=== PATIENT | male | born 1955 | race Caucasian/White ===

== ENCOUNTER 2017-06-27 23:56 | Inpatient (IN) | payer MEDICAID ==
[~2017-06-27] VITALS: Ht 170.2 cm; Wt 86.9 kg
--- NOTE | ~2017-06-27 | DS ---
PATIENT'S NAME: ARMIN REYES [facility] AGE: 61 Y [address] ROOM: [address] [address] LOCATION: GPCU ADMIT DATE: 06/28/2017 Discharge Summary DISCHARGE DATE: 06/30/2017 FAMILY PHYSICIAN: Juan Jose Yuen MD ATTENDING PHYSICIAN: Lm Cool ADMITTING DIAGNOSIS: Acute blood loss anemia. DISCHARGE DIAGNOSIS: Acute blood loss anemia. SECONDARY DIAGNOSES: 1. History of deep vein thrombosis. 2. Syncope. 3. Bleeding of right lower extremity through exploration site. 4. Hypertension. 5. History of alcohol abuse. 6. Legally blind. PROCEDURES: Echocardiogram and stress test. CONSULTATION: Cardiology. 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 The patient called his sister and was taken to [place] for evaluation. In the emergency department at [place], the patient was drowsy. Right foot was bleeding; however, it stopped by itself shortly after he arrived in the emergency department. His blood pressure was found to be 88/50 and heart rates in the 90s. Hemoglobin was 13.2 on arrival. The patient had a CT scan of the head at the outside hospital, which was normal, and INR was 1.5. The patient was given a bolus of IV fluid with improvement of blood pressure. There was a question whether the patient had a syncopal event in the emergency department and was transferred here for further workup. HOSPITAL COURSE: The patient was transferred to our facility. The patient did not have any site of bleeding. His hemoglobin has been stable during stay. The patient had an echocardiogram shows EF of 75%. The patient was seen by Cardiology and had stress test done, which shows inferolateral small fixed defect, most likely secondary to attenuation, no reversible ischemic changes. The patient was restarted back on Xarelto without any signs of bleeding. The patient had lower extremity Doppler done shows chronic DVT. The patient's hemoglobin has been stable during stay. Sites of bleeding were right foot bleeding, secondary to small excoriation. During his stay, the patient was also placed on CIWA protocol for possible alcohol withdrawal. The PATIENT'S NAME: ARMIN REYES [facility] AGE: 61 Y [address] ROOM: G6[address] [place], [place] [address] LOCATION: GPCU ADMIT DATE: 06/28/2017 Discharge Summary DISCHARGE DATE: 06/30/2017 FAMILY PHYSICIAN: Juan Jose Yuen MD ATTENDING PHYSICIAN: Lm Cool patient did not go into alcohol withdrawal. The patient was offered to have a Holter monitor on discharge; however, declined to get Holter monitor from the hospital and reports that he wants to do it as outpatient. Also, discussed about the use of KARELY hose for his chronic venous stasis. The patient reports that he has KARELY hose at home and will wear. The patient lives by himself and legally blind. Discussed about Home Health Care. The patient refused Home Health Care and he said he is able to take care from himself. CONDITION: Stable. DISPOSITION: Home. DISCHARGE MEDICATIONS: Please see MAR. DISCHARGE INSTRUCTIONS: To go to the emergency department if the patient have presyncopal event or bleeding. Also, to go to the emergency department if he has chest pain, shortness of breath, fever, and chills. FOLLOW UP: Follow up with his primary care physician in 1 week. PHYSICAL EXAMINATION: VITAL SIGNS: Stable. CHEST: Clear to auscultation bilaterally. HEART: Regular rate and rhythm. No murmurs, rubs, or gallops. ABDOMEN: Soft, nontender, nondistended. EXTREMITIES: Bilateral venous stasis change. HATCHERY MAN: The patient is alert and oriented x3. Greater than 30 minutes was spent on discharge planning. MD MO HSIEH/tej /[id number] d: 07/01/17 0134 t: 07/08/17 1059, DISCHARGE SUMMARY
--- NOTE | ~2017-06-27 | ENPV ---
Vascular Lower Extremities DVT Study Procedure Demographics Patient Name ARMIN REYES Date of Study 06/28/2017 Patient Number [id number] Gender Male Date of 1955 Age 61 Visit Number [id number] Height 67 Weight 189.82 Number Referring Silvina Murillo MD Interpreting aMti Galeana MD Physician Physician Physician Ordering Silvina Murillo [employer] Ranger Physician Saw Maker Sharlene Gutierrez RDCS, RVT, RDMS, PATIENT PORTAL CONCIERGE Conclusions Summary Chronic to subacute dvt is noted from the right popliteal through the calf veins. The left leg is negative for DVT. Procedure Type of Study: Veins:Lower Extremities DVT Study, Venous Duplex Lower Extremity Bilateral. Additional Indications:History of DVT / PE s/p 2015. Edema. Appropriate Use Criteria:9 Patient Status:Routine. Study Location:Inpatient Portable. Technical Quality:Adequate visualization. - Preliminary reported to:Dr. Cool at 09:00 AM.. Risk Factors - The patient's risk factor(s) include: treated arterial hypertension. Velocities are measured in cm/s ; Diameters are measured in cm Right Lower Extremities DVT Study Measurements Right 2D and Doppler Measurements + + + + +------+------+ + !Location !Visualized!Compressibility!Thrombosis!Signal!Reflux!Reflux ! ! ! ! ! ! ! !(sec) ! + + + + +------+------+ + !GSV Thigh !Yes !Yes !None !Phasic! ! ! + + + + +------+------+ + !Common !Yes !Yes !None !Phasic! ! ! !Femoral ! ! ! ! ! ! ! + + + + +------+------+ + !Prox !Yes !Yes !None !Phasic! ! ! !Femoral ! ! ! ! ! ! ! + + + + +------+------+ + !Mid Femoral!Yes !Yes !None !Phasic! ! ! + + + + +------+------+ + !Dist !Yes !Yes !None !Phasic! ! ! !Femoral ! ! ! ! ! ! ! + + + + +------+------+ + !Popliteal !Yes !Partial !Chronic !Absent! ! ! + + + + +------+------+ + !Gastroc !Yes !Yes !None ! ! ! ! + + + + +------+------+ + !PTV !Yes !Partial !Chronic ! ! ! ! + + + + +------+------+ + !Peroneal !Yes !Partial !Chronic ! ! ! ! + + + + +------+------+ + Left Lower Extremities DVT Study Measurements Left 2D and Doppler Measurements + + + + +------+------+ + !Location !Visualized!Compressibility!Thrombosis!Signal!Reflux!Reflux ! ! ! ! ! ! ! !(sec) ! + + + + +------+------+ + !GSV Thigh !Yes !Yes !None !Phasic!No ! ! + + + + +------+------+ + !Common !Yes !Yes !None !Phasic!No ! ! !Femoral ! ! ! ! ! ! ! + + + + +------+------+ + !Prox !Yes !Yes !None !Phasic!No ! ! !Femoral ! ! ! ! ! ! ! + + + + +------+------+ + !Mid Femoral!Yes !Yes !None !Phasic!No ! ! + + + + +------+------+ + !Dist !Yes !Yes !None !Phasic!No ! ! !Femoral ! ! ! ! ! ! ! + + + + +------+------+ + !Popliteal !Yes !Yes !None !Phasic!No ! ! + + + + +------+------+ + !Gastroc !Yes !Yes ! ! ! ! ! + + + + +------+------+ + !PTV !Yes !Yes ! ! ! ! ! + + + + +------+------+ + !Peroneal !Yes !Yes ! ! ! ! ! + + + + +------+------+ + Signature dtt: JESUS RYDER dtlynn: 06/28/17 0753 Physician Esteban Collier
--- NOTE | ~2017-06-27 | ESTC ---
Cardiac Perfusion Imaging Demographics Patient Name ERIC FUNEZ Gender Male Patient Number [id number] Race Visit Number [id number] Ethnicity Corporate ID Room Number G6333 Accession Number [id number] Height 67 inches Date of 1955 Weight 189.8 pounds Interpreting Charo Bruno Date of study 06/29/2017 Physician Supervising /BRUNAP Charo Bruno NM Technologist Marianela Wong MD Ordering Physician Stress Catracho Azul photogrammetric technician RVT Stress ECG Reading Charo Bruno Nurse Damari Lorenzo Physician RN The procedure was explained in detail to the patient. Risks, complications and alternative treatments were reviewed. Written consent was obtained. Medications Reviewed with Patient prior to Procedure. Procedure Procedure Type: Nuclear Stress Test:Pharmacological, Cardiolite Stress Test Procedure Start time: 06/29/2017 10:45 Indications: Syncope. Risk Factors The patient risk factors include:treated hypertension. Conclusions Summary Asymptomatic with Lexiscan with no EKG changes of ischemia. Small to medium inferolateral fixed defect of moderate degree most consistent with soft tissue attenuation. LVEF: 82%. Normal WM. Stress Protocols Resting ECG RSR. Pre-stress physical exam: Un changed. Predicted HR: 159 bpm ECG Findings No ECG changes suggestive of ischemia. Arrhythmias No rhythm abnormality. Symptoms No symptoms with Lexiscan infusion. Stress Interpretation Lexiscan cardiolite study with normal hemodynamic response. No symptoms. No ischemia. No arrythmia. Imaging Results Applied corrections - Motion correction applied High risk findings Summed scores - Summed stress score: 1 - Summed rest score: 2 - Summed difference score: -1 Stress ejection Ejection fraction:82 % EDV :84 ml ESV :15 ml Stroke volume :69 ml LV mass :117 gr LV size:Normal Normal LV function Imaging Protocols Rest Stress Isotope:Tc99m Sestamibi IV Isotope: Tc99m Sestamibi IV Isotope dose:13.7 mCi Isotope dose:41.8 mCi Date:06/29/2017 09:24 Date:06/29/2017 11:09 Technique: SPECT Technique: Gated Supine SPECT Supine IV remains in place after procedure. Procedure Medications - Regadenoson (Lexiscan) 0.4 mg IV over 10-15 sec. I.V. 0.4 mg. Medical History Admission Data Admission date: 06/28/2017 Admission Time: 01:55 Hospital Status: Inpatient. Signatures dtt: Kiana Mancilla dtd: 06/29/17 1045 Physician Self Edit
--- NOTE | ~2017-06-27 | HP ---
PATIENT'S NAME: ARMIN REYES [facility] AGE: 61 Y [address] ROOM: [address] [place], [place] [address] LOCATION: GPCU ADMIT DATE: 06/28/2017 History & Physical DISCHARGE DATE: FAMILY PHYSICIAN: Juan Jose Yuen MD ATTENDING PHYSICIAN: JENNIFER TELLO DATE OF SERVICE: CHIEF COMPLAINT: Syncope and acute blood loss from the right medial ankle area. HISTORY OF PRESENT ILLNESS: This is a 61-year-old male who says that he chronically takes Xarelto. He has a history of pulmonary embolism that happened in year 2014, around that time, he had right hip surgery. He says that last night around 7 p.m. and when he woke up from sleep, he noticed that the socks of his right foot was wet, therefore he grabbed a small piece of towel to dry the right foot and he noticed that it was actually blood. He says that he had to use 2 small sized towels to clean all the blood on his right foot. His socks were also soaked with blood. He says the blood was coming out from the medial side of the right foot below the medial malleolus. He denies any trauma or any injury or any fall. He has no idea how he got a bleeding from the right foot. He lost so much blood according to him that he had no recollection of what happened afterwards, but he did remember that he called his sister over the phone. When the sister came by, the patient was brought to the outside facility emergency room in [place] for evaluation. In addition, the patient is a chronic alcohol drinker. He drinks about 6 pack of beer per day every day for long time, but he denies any alcohol withdrawal in the past. When he arrived to the emergency room in [place], the patient was very drowsy, almost unresponsive. The right foot was still bleeding in that area, however, it stopped by itself shortly after he arrived over there in the emergency room. His blood pressure was found to be 88/50, heart rate of low 90s on arrival over there. EKG was normal over there. Troponin was normal over there. Hemoglobin was 13.2 and platelet was 256 over there on arrival. The patient had a CT scan of the head which also came back unremarkable. Liver function was normal over there. INR is 1.5. The patient was given 1 L of normal saline bolus. Blood pressure improved to 110 systolic, heart rate went down to the low 80s. Chest x-ray was unremarkable. In the emergency room over there, the patient also vomited once and they described unresponsiveness as a syncope and it only happened once when he arrived in the emergency room. Due to the concern of syncope and acute blood loss in the setting of using Xarelto and due to his prior history of pulmonary embolism, the patient was referred here for further care. PATIENT'S NAME: ARMIN REYES [facility] AGE: 61 Y [address] ROOM: [address] [address] [facility] ADMIT DATE: 06/28/2017 History & Physical DISCHARGE DATE: FAMILY PHYSICIAN: Juan Jose Yuen MD ATTENDING PHYSICIAN: JENNIFER TELLO REVIEW OF SYSTEMS: As mentioned in the history of present illness. All other systems were reviewed and were negative except those mentioned in history of present illness. PAST MEDICAL HISTORY: 1. Pulmonary embolism diagnosed in year 2014. The patient states that it happened right before he had right hip surgery. He was on Coumadin and was later switched to Xarelto. Given that Coumadin, he would require INR monitoring and he did not want that. The patient says that he never bled while he was on Coumadin or on Xarelto. The first time he bled was the last night with Xarelto. 2. Hypertension. 3. Gout. ALLERGIES: NONE ACCORDING TO THE PATIENT. HOME MEDICATIONS: 1. The patient does take Xarelto. 2. Allopurinol. 3. One blood pressure medication, but he could not remember the name. 4. Medication list has to be reconciled by the medical staff with the patient's pharmacy before they can be addressed. SOCIAL HISTORY: The patient is a chronic alcohol long-time drinker with 6-pack per day for many years. He denies any alcohol withdrawal seizure in the past. The patient denies any cigarette or any illegal drug use. PAST SURGICAL HISTORY: 1. Status post right hip surgery. 2. Status post left wrist surgery. FAMILY HISTORY: Father from old age from Alzheimer disease. Mother from old age, but he could not remember the cause. PHYSICAL EXAMINATION: VITAL SIGNS: At the time of my dictation; temperature 98, heart rate 86, respirations 14, blood pressure 138/87, saturation 97% on room air. GENERAL APPEARANCE: Alert and oriented x3. Currently, in no acute distress. HEENT: Pupils equally round and reactive to light. Extraocular muscles intact. Anicteric sclerae. Nasal turbinates are normal bilaterally. Dry oral mucosa. PATIENT'S NAME: ARMIN REYES [facility] AGE: 61 Y [address] ROOM: [facility] [place] [place] [address] [facility] ADMIT DATE: 06/28/2017 History & Physical DISCHARGE DATE: FAMILY PHYSICIAN: Juan Jose Yuen MD ATTENDING PHYSICIAN: JENNIFER TELLO NECK: No JVD. CARDIOVASCULAR: Regular rate and rhythm. Normal S1, S2. No murmur. No rubs. No gallops. RESPIRATORY: Clear to auscultation. No rales. No rhonchi. No wheezing. No crackles. ABDOMEN: Soft, nontender, nondistended, bowel sounds present, no mass. No hepatosplenomegaly. EXTREMITIES: He does have edema on right lower extremity and left lower extremity is normal. He does have venous stasis dermatitis changes in bilateral lower extremities. On the right lower extremity, I do appreciate some visible varicose veins below the left medial malleolus, but they are not actively bleeding. He does have some dry blood around his toenails of the right foot. No ulcer. No cyanosis. Dorsalis pedis pulse and posterior tibialis pulse +1 bilaterally palpable. NEUROLOGICAL: Grossly nonfocal. SKIN: He does have flaking, erythema and patches in the face and neck. He also has scaling in his scalp finding consistent with seborrheic dermatitis. LABORATORY DATA: CPK 25, troponin less than 0.04. ProBNP 254. White blood cell 21, hemoglobin 11.6, hematocrit 33.4, platelet 239. Glucose 115, BUN 6, creatinine 0.5. Sodium 133, potassium 4.1, chloride 97, CO2 24, calcium 7.5, total protein 6.0, albumin 3.2, AST 18, ALT 15, alkaline phosphatase 54, total bilirubin 0.8, direct bilirubin 0.3, phosphorus 3.1, magnesium 1.3, anion gap 16.1, A1c pending, INR 1.31, PTT 38, GFR more than 90, CK-MB 1.3. IMAGING STUDIES: EKG on admission shows sinus rhythm, heart rate of 83 beats per minutes without any acute ischemic changes. CT of the head without contrast on admission showed nonspecific white matter disease. Additional hypodensities in the right thalamus and the left amanda likely old. However if there is concern for an acute stroke, we will recommend MRI. Chest x-ray on admission from the outside facility showed normal chest. ASSESSMENT AND PLAN: 1. Regarding his syncope. Differential could be from acute blood loss with hypotension from hypovolemia, vasovagal, orthostatic hypotension, arrhythmia. For this reason, I am going to be checking orthostatic vital sign to rule out dehydration. In addition, I will be getting a blood type and screen and also check hemoglobin and hematocrit in 4 hours again and then we will transfuse if the hemoglobin is less than 7. We will PATIENT'S NAME: ARMIN REYES [facility] AGE: 61 Y [address] ROOM: [place] [address] [facility] ADMIT DATE: 06/28/2017 History & Physical DISCHARGE DATE: FAMILY PHYSICIAN: Juan Jose Yuen MD ATTENDING PHYSICIAN: JENNIFER TELLO also be getting a transthoracic echo for evaluation for syncope. I will also consult Cardiology for syncope evaluation as well as for the possibility of IVC filter implantation to prevent future acute blood loss from taking Xarelto or Coumadin given that the patient does have a history of pulmonary embolism in the past and that is why he is on Xarelto. Further plan will depend on clinical course. 2. Regarding his acute blood loss in the right lower extremity on Xarelto. The patient does not remember how he bled, but he denies any trauma. Probably this is from Xarelto induced bleeding from the varicose veins or the patient actually had a trauma and he could not remember. As mentioned before, we will get a blood type and screen and check hemoglobin and hematocrit in 4 hours and then we will transfuse if the hemoglobin is less than 7. In addition, we will continue IV fluids for hydration. 3. Regarding his seborrheic dermatitis. We will cover him with topical triamcinolone topical cream twice a day for 7 days and he can use it longer if necessary. When the patient gets discharge from his scalp, the patient will require antifungal shampoo, it could be Ketoconazole or selenium sulfide. 4. Regarding his high-risk for alcohol withdrawal. His last drink was yesterday. I will be putting on the CIWA protocol and he can use p.o. Ativan or p.o. Valium per CIWA protocol. 5. He is a full code. 6. DVT prophylaxis. For now, we will avoid Xarelto. Encourage ambulation. Time spent in care on the day of admission 50 minutes where 10 minutes was spent on chart review, remainder of time was spent on interview and physical examination and also on counseling. The counseling includes extensive work through about the plan of care with the patient in detail and I answered all his questions and concerns to his satisfaction. I also went over the plan of care with the nurse. Further plan will depend on clinical course. MD TAURUS NAPIER/tej /[id number] D: [id number] T: [id number] HISTORY & PHYSICAL
--- NOTE | ~2017-06-27 | ECHO ---
Transthoracic Echocardiography Report (TTE) Demographics Patient Name ARMIN REYES Date of Study 06/28/2017 Patient Number [id number] Visit Number [id number] Date of 1955 Room Number G6333 Gender Male Number Age 61 year(s) Referring Silvina Murillo MD Clinical Laboratory Director Sharlene Gutierrez RDCS, Physician RVT, RDMS, CHILD & ADOLESCENT PSYCHIATRIST Physician Interpreting Dimas Lopez MD Radiator Fitter Physician Supervising Ordering Silvina Murillo MD, MD/MLP Physician Nurse Stress Corner Former Conclusions Contractility Score Summary Normal Left Ventricular contractility was noted. Summary Hyperdynamic left ventricular systolic function with an ejection fraction of 75% Mild concentric left ventricular hypertrophy. Diastolic assessment reveals Grade I diastolic dysfunction. There is a resting mid cavity gradient of 15 mmHg and peak Valsalva gradient of 61 mmHg. Left atrium is mildly dilated. Mild mitral annular calcification. Focal calcification of the anterior leaflet of the mitral valve. No mitral regurgitation by color Doppler. Procedure Type of Study TTE procedure:2D Echocardiogram, M-Mode, Doppler , Color Doppler. Procedure Date Date: 06/28/2017 Start: 08:17 AM Study Location: Inpatient Portable Technical Quality: Fair due to lung interference. Additional Indications:Syncope Appropriate Use Criteria: 7 Patient Status: Routine HR: 83 bpm BP: 101/58 mmHg M-Mode/2D Measurements LV Diastolic Dimension: 4.15 cm LV Systolic Dimension: 2.26 cm LV Septum Diastolic: 1.17 cm LV PW Diastolic: 1.11 cm AO Root Dimension: 3.1 cm Cardiac Output: 5.87 l/min AV Cusp Separation: 2.3 cm RV Diastolic Dimension: 3.96 cm LA volume: 59 ml LVOT: 1.8 cm RV Base: 3 cm LVOT VTI: 27.8 cm RV Mid: 2.5 cm LV Stroke volume: 70.71 ml Doppler Measurements AV Peak Velocity: 1.61 m/s MV Peak E-Wave: 0.56 m/s AV Peak Gradient: 10.37 mmHg MV Peak A-Wave: 1.34 m/s AV Mean Gradient: 5 mmHg MV E/A Ratio: 0.42 LVOT Peak Velocity: 1.37 m/s MV P1/2t: 80 msec Estimated RAP:3 mmHg PV Peak Velocity: 1.13 m/s E' Septal Velocity: 0.07 m/s PV Peak Gradient: 5.11 mmHg E' Lateral Velocity: 0.07 m/s A' Septal Velocity: 0.11 m/s A' Lateral Velocity: 0.09 m/s Findings Left Ventricle Mild concentric left ventricular hypertrophy. Diastolic assessment reveals Grade I diastolic dysfunction. There is a resting mid cavity gradient of 15 mmHg and peak Valsalva gradient of 61 mmHg. Right Ventricle Normal right ventricle structure and function. Left Atrium Left atrium is mildly dilated. Right Atrium Normal right atrial size. IVC imaging is consistent with normal RA pressures. Mitral Valve Mild mitral annular calcification. Focal calcification of the anterior leaflet of the mitral valve. No mitral regurgitation by color Doppler. Aortic Valve The aortic valve is moderately sclerotic. Tricuspid Valve Normal tricuspid valve structure and function. Insufficient tricuspid regurgitant waveform to assess pulmonary pressures. Pulmonic Valve Normal pulmonic valve structure and function. Pericardial Effusion No evidence of pericardial effusion. Miscellaneous Visualized portions of the aortic root and ascending aorta appear normal in size. Pleural Effusion No evidence of pleural effusion. Signature dtt: STEVE DE JESUS dtd: 06/28/17 0817 Physician Self Edit
--- NOTE | ~2017-06-27 | CON ---
PATIENT'S NAME: ARMIN REYES [facility] AGE: 61 Y [address] ROOM: [id number] [place], [place] [address] LOCATION: GPCU ADMIT DATE: 06/28/2017 Consultation DISCHARGE DATE: FAMILY PHYSICIAN: Juan Jose Yuen MD ATTENDING PHYSICIAN: JENNIFER TELLO DATE OF CONSULTATION: 06/28/2017 REFERRING PHYSICIAN: Kiana Mancilla MD HISTORY OF PRESENT ILLNESS: Mr. Reyes is a 61-year-old male patient, who had a bleeding leg artery that caused his blood pressure to drop down to 80s. During that time, he had a spell where he does not recall anything, and it appears he may have been presyncopal at that time. I am asked to see him in consultation because of that, and his echo is abnormal. So, I am planning on checking his EKGs and troponins, and if negative, we will do a Lexiscan Cardiolite study. 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 He has been disabled since then. He lives alone in [place], [place]. Typically, he is able to take care of himself and go out and walk up to about 8 to 9 blocks. His vision is quite poor at this time, but he manages. Typically, he does not have any chest pain. He is not on any regular structured exercise program. He is in functional class 2 with no paroxysmal nocturnal dyspnea or orthopnea. There is no history of lightheadedness, dizziness, syncope, presyncope, palpitations, etc. He has had ankle swelling for a few years since he had his hip surgery on the right side. The patient has a history of hypertension and gout. He denies diabetes, elevated cholesterol, tobacco abuse, or family history of premature coronary artery disease. He denies SD or angina or nitroglycerin use. There is no history of rheumatic fever, heart murmur, heart failure, dilated or enlarged heart, or any diagnosed cardiac arrhythmias. The patient has a history of pulmonary embolism in close proximity to his hip surgery. In fact, it was prior to his hip surgery, and he has since then been on Xarelto. MEDICATIONS: 1. Xarelto 20 mg a day. 2. Multivitamin once a day. 3. Allopurinol 300 mg a day. PATIENT'S NAME: ERIC [facility] AGE: 61 Y [address] ROOM: [place] [address] LOCATION: GPCU ADMIT DATE: 06/28/2017 Consultation DISCHARGE DATE: FAMILY PHYSICIAN: Juan Jose Yuen MD ATTENDING PHYSICIAN: JENNIFER TELLO 4. Docusate sodium. 5. Hydrocodone/acetaminophen one tablet every 6 hours. 6. Metoprolol 100 mg a day. ALLERGIES: NO KNOWN DRUG ALLERGIES. PAST MEDICAL AND SURGICAL HISTORY: 1. Left hip surgery. 2. Left wrist surgery. 3. Legally blind. 4. DJD of left knee. SOCIAL HISTORY: He lives alone. He drinks a six pack of beer a day. He denies recreational drug abuse. His appetite and weight are stable. Sleep is fair. FAMILY HISTORY: No premature coronary artery disease. REVIEW OF SYSTEMS: Twelve-point review of systems revealed allergies and some lack of energy. PHYSICAL EXAMINATION: GENERAL: The patient is awake and alert, and he is able to give a fairly detailed history. VITAL SIGNS: Blood pressure is 140/80, heart rate is in the 60s and 70s and regular, respirations are 18, and afebrile. HEENT: Normal. NECK: Supple. No JVD, thyromegaly, lymphadenopathy, or carotid bruit. HEART: PMI is not well located. First and second heart sounds are regular. There are no added sounds or murmurs. CHEST: Clear to auscultation. ABDOMEN: Soft and nontender. Bowel sounds are normally present. EXTREMITIES: Revealed 1+ edema. NEUROLOGICAL: Central nervous system was intact. ASSESSMENT: A 61-year-old male patient with presyncope. He may have had a syncopal spell. This was in relation to losing blood from a superficial bleed from the right leg. However, he is legally blind, and so he could not take care of it. It appears as if his echo is abnormal. RECOMMENDATIONS: We will rule him out for SD, and then get a stress test in the morning. [facility]GE[facility] 61 Y [address] ROOM: [place] [address] LOCATION: GPCU ADMIT DATE: 06/28/2017 Consultation DISCHARGE DATE: FAMILY PHYSICIAN: Juan Jose Yuen MD ATTENDING PHYSICIAN: JENNIFER TELLO Again, I appreciate this opportunity to participate in the care of Mr. Reyes. MD JESSICA ELAINE/tej /[id number] d: 06/28/178 t: 07/02/17 1226, CONSULTATION REPORT
[2017-06-28] MEDS ORDERED: XARELTO20 MG PO (03:16)
[2017-06-28] MEDS ORDERED: THERAGRAN-M1 TAB PO (03:16)
[2017-06-28 04:04] LABS: HEMATOCRIT 33.4 % (37.0-53.0); HEMOGLOBIN 11.6 g/dL (11.0-16.0); MCH 31.9 pg (27.0-34.0); MCHC 34.7 gm/dL (32.0-36.5); MCV 91.8 fl (83.0-98.0); PLATELET COUNT 239 K/uL (150-450); RBC 3.64 M/uL (3.50-5.50); RDW-CV 13.1 % (11.9-14.6)
[2017-06-28 04:08] LABS: INR - (THERAPEUTIC) 1.31 (0.92-1.07); PROTIME 13.8 SECONDS (9.8-11.4); PTT 38 SECONDS (25-32)
[2017-06-28 04:16] LABS: ALBUMIN 3.2 gm/dL (3.5-5.0); ALK PHOS 54 IU/L (33-138); ALT 15 IU/L (12-78); ANION GAP 16.1 (10.0-19.0); AST 18 IU/L (10-40); BLOOD UREA NITROGEN 6 mg/dL (6-24); CALCIUM 7.5 mg/dL (8.5-10.5); CHLORIDE 97 mMol/L (96-110); CO2 24 mMol/L (22-32); CPK 25 IU/L (35-332); CREATININE 0.5 mg/dL (0.6-1.3); MAGNESIUM 1.3 mg/dL (1.8-2.6); PHOSPHORUS 3.1 mg/dL (2.5-4.9); POTASSIUM 4.1 mMol/L (3.7-5.1); SODIUM 133 mMol/L (135-145); TOTAL BILIRUBIN 0.8 mg/dL (0.0-1.5)
[2017-06-28 04:35] LABS: ABSOLUTE NEUTROPHIL CT (ANC) 20.2 K/uL (1.4-9.0); BANDED NEUTROPHIL # 3.4 K/uL (0.0-0.1); BANDED NEUTROPHILS % 16 %; LYMPHOCYTE # 0.2 K/uL (0.8-4.0); LYMPHOCYTE % 1 %; MONOCYTE # 0.6 K/uL (0.0-1.0); SEGMENTED NEUTROPHIL # 16.8 K/uL (1.4-9.0); SEGMENTED NEUTROPHIL % 80 %
[2017-06-28 06:10] LABS: HEMATOCRIT 33.3 % (37.0-53.0); HEMOGLOBIN 11.5 g/dL (11.0-16.0)
--- NOTE | 2017-06-28 07:09 | NUR ---
Significant Event: PATIENT A/O X3. VSS SBP 110-120 HR 80. O2 SATS 98% ON RA. PATIENT HAD ACUTE BLOOD LOSS AT HOME, TAKEN TO HOSPITAL IN [place] AND HAD A SYNCOPAL EPISODE THERE. PATIENT STATES HE DRINKS A 6 PACK OF BEER EVERYDAY. PATIENT HAS VENOUS STAINING LOWER LEGS BILAT FROM KNEES TO TOES. PAIENT IS AFEBRILE AND DENEIS PAIN. Follow up: FOLLOW CARE PLAN.
[2017-06-28 08:41] LABS: HEMATOCRIT 32.8 % (37.0-53.0); HEMOGLOBIN 11.2 g/dL (11.0-16.0); MCH 31.5 pg (27.0-34.0); MCHC 34.1 gm/dL (32.0-36.5); MCV 92.4 fl (83.0-98.0); MPV 9.8 fl (9.4-12.4); RBC 3.55 M/uL (3.50-5.50); RDW-CV 13.2 % (11.9-14.6)
[2017-06-28 08:43] LABS: WBC 20.9 K/uL (4.0-11.0)
[2017-06-28 09:02] LABS: ANION GAP 14.3 (10.0-19.0); BLOOD UREA NITROGEN 8 mg/dL (6-24); CALCIUM 7.8 mg/dL (8.5-10.5); CHLORIDE 97 mMol/L (96-110); CO2 25 mMol/L (22-32); CREATININE 0.6 mg/dL (0.6-1.3); POTASSIUM 4.3 mMol/L (3.7-5.1); SODIUM 132 mMol/L (135-145)
[2017-06-28] MEDS ORDERED: COLACE100 MG PO (11:13)
[2017-06-28] MEDS ORDERED: ZYLOPRIM300 MG PO (11:13)
[2017-06-28] MEDS ORDERED: NORCO 5-325 TA1 EACH PO (11:14)
[2017-06-28] MEDS ORDERED: TOPROL XL100 MG PO (11:14)
--- NOTE | 2017-06-28 12:15 | NUR ---
Introduced self and role of care management to patient. He lives by himself in [facility]. He states that he is able to do all his own ADL's. He does have a sister the lives a few blocks from him that assists if needed. He plans on returning home on discharge. He states his sister will be coming to pick him up on discharge. He denies any needs at this time. Will continue to follow.
--- NOTE | 2017-06-28 16:38 | NUR ---
Significant Event: Patient alert and oriented. Denies numbness and tingling. Has had no bleeding, restarted on Eliquis. Venous staining to lower extremites. IV to L) AC, running NS at 75 mls/hr. Used urinal x1, need UA. CWA score has been 4 and under. Denies nausea/vomiting. States throat is sore from vomiting last evening. Is legally blind but is able to see close shapes. VSS on room air, has had temps in the 99's. WBC is elevated, CBC in AM. Denies pain. Cooperative with cares. Follow up:
[2017-06-29 02:41] LABS: BASOPHIL % 0.3 %; EOSINOPHIL # 0.1 K/uL (0.0-0.5); EOSINOPHIL % 0.5 %; HEMATOCRIT 26.9 % (37.0-53.0); HEMOGLOBIN 9.4 g/dL (11.0-16.0); IMMATURE GRANULOCYTE # 0.1 K/uL (0.0-0.3); IMMATURE GRANULOCYTE % 0.8 %; LYMPHOCYTE # 0.9 K/uL (0.8-4.0); LYMPHOCYTE % 9.3 %; MCH 31.9 pg (27.0-34.0); MCHC 34.9 gm/dL (32.0-36.5); MCV 91.2 fl (83.0-98.0); MONOCYTE # 1.4 K/uL (0.0-1.0); MONOCYTE % 13.9 %; NEUTROPHIL # (ANC) 7.3 K/uL (1.4-9.0); NEUTROPHIL % 75.2 %; NRBC % 0 /100WBC (0-0.00); RBC 2.95 M/uL (3.50-5.50); RDW-CV 13.3 % (11.9-14.6); WBC 9.8 K/uL (4.0-11.0)
[2017-06-29 02:42] LABS: PLATELET COUNT 150 K/uL (150-450)
--- NOTE | 2017-06-29 05:15 | NUR ---
Significant events: Pt A/Ox3. VSS. No complaints of pain. No bleeding from R) ankle noted. Pt legally blind, able to see shapes. NPO after midnight for stress test this AM. Voids per urinal. Slept well this shift. Possible home after stress test.
[2017-06-29 06:58] LABS: BILIRUBIN URINE NEGATIVE (NEGATIVE); BLOOD URINE NEGATIVE /UL (NEGATIVE); COLOR URINE YELLOW (YELLOW); GLUCOSE URINE NEGATIVE (NEGATIVE); KETONE URINE NEGATIVE (NEGATIVE); LEUKOCYTES URINE 25 /UL (NEGATIVE); NITRITE URINE NEGATIVE (NEGATIVE); PROTEIN URINE NEGATIVE (NEGATIVE); SPEC GRAVITY URINE 1.005 (1.003-1.035); TURBIDITY URINE CLEAR (CLEAR); UROBILINOGEN URINE NORMAL (NORMAL)
[2017-06-29 07:09] LABS: BACTERIA URINE NEGATIVE (NEGATIVE); EPITHELIAL URINE RARE #/HPF (NEGATIVE); RBC URINE NEGATIVE #/HPF (NEGATIVE); WBC URINE 0-2 #/HPF (NEGATIVE)
[2017-06-29 07:20] LABS: BARBITURATE NEGATIVE (NEGATIVE); COCAINE NEGATIVE (NEGATIVE); OPIATES NEGATIVE (NEGATIVE)
[2017-06-29 07:26] LABS: AMPHETAMINE NEGATIVE (NEGATIVE)
--- NOTE | 2017-06-29 16:10 | NUR ---
Significant Event: Stress test completed. Up to BR one assist. No bleeding rt ankle. Venous staining lower legs. Leagally blind. Possible home tomorrow Follow up:
--- NOTE | 2017-06-30 04:01 | NUR ---
Significant Event: Hemocult stools. Patient is blind. Voids without difficulty. No bleeding from right ankle. Denies pain. Possible dismissal. Follow up:
--- NOTE | 2017-06-30 14:45 | NUR ---
D; Patient dismissed to home with family assistance. Denies pain. Ambulated with one assist. Legally blind. Venous staining to lower legs. Patient and sister voice understanding of dismissal instructions. Dismissed via w/c with dismissal instruction, rx and belongings.
== END 2017-06-30 14:45 | disposition disaster alternative care site (69) | DRG 812 ==
LOC: GPCU 23:56 → EDBD 06-28 01:55 → GPCU 06-30 14:45
PROVIDERS: Internal Medicine; ADMIT Internal Medicine
DX: D62 Acute posthemorrhagic anemia (principal); M25.071 Hemarthrosis, right ankle; I10 Essential (primary) hypertension; Z86.718 Personal history of other venous thrombosis and embolism; Z79.01 Long term (current) use of anticoagulants; H54.8 Legal blindness, as defined in USA; E86.1 Hypovolemia; L21.9 Seborrheic dermatitis, unspecified; F10.20 Alcohol dependence, uncomplicated; I95.1 Orthostatic hypotension
CPT/HCPCS: A9500; J2785; J3475; J7030